=== PATIENT | male | born 1985 | race Caucasian/White ===

== ENCOUNTER 2022-04-29 16:52 | Emergency (ER) | payer OTHER | END 2022-04-29 17:46 | disposition home or self-care (01) | LOC: NAV ERS 16:52 | DX: S43.402A Unspecified sprain of left shoulder joint, initial encounter (principal); I10 Essential (primary) hypertension; E78.5 Hyperlipidemia, unspecified; Z87.891 Personal history of nicotine dependence; X58.XXXA Exposure to other specified factors, initial encounter | CPT/HCPCS: 99283 ==

== ENCOUNTER 2022-05-17 08:04 | Emergency (ER) | payer OTHER ==
[2022-05-17] MEDS ORDERED: predniSONE 20 MG TAB ONE (08:20)
== END 2022-05-17 08:28 | disposition home or self-care (01) ==
LOC: NAV ERS 08:04
DX: L23.7 Allergic contact dermatitis due to plants, except food (principal); I10 Essential (primary) hypertension; E78.5 Hyperlipidemia, unspecified
CPT/HCPCS: 99282; J7512

== ENCOUNTER 2024-01-03 10:44 | Emergency (ER) | payer BC, OTHER ==
[2024-01-03] MEDS ORDERED: AMOXicillin 250 MG CAP ONE (11:17)
[2024-01-03] MEDS ORDERED: Ketorolac Tromethamine 60 MG/2 ML VIAL ONE (11:18)
== END 2024-01-03 11:36 | disposition home or self-care (01) ==
LOC: NAV ERS 10:44
DX: K02.9 Dental caries, unspecified (principal); I10 Essential (primary) hypertension; F17.210 Nicotine dependence, cigarettes, uncomplicated
CPT/HCPCS: 96372; 99282; J1885

== ENCOUNTER 2024-01-31 05:24 | Emergency (ER) | payer BC | END 2024-01-31 07:16 | disposition home or self-care (01) | LOC: NAV ERS 05:24 | DX: S43.401A Unspecified sprain of right shoulder joint, initial encounter (principal); R03.0 Elevated blood-pressure reading, without diagnosis of hypertension; X58.XXXA Exposure to other specified factors, initial encounter; Y99.0 Civilian activity done for income or pay ==

== ENCOUNTER 2024-10-03 07:58 | Emergency (ER) | payer BC ==
[2024-10-03] MEDS ORDERED: Ibuprofen 200 MG TAB ONE (08:23)
[2024-10-03] MEDS ORDERED: Methocarbamol 500 MG TAB ONE (08:25)
== END 2024-10-03 08:51 | disposition home or self-care (01) ==
LOC: NAV ERS 07:58
DX: S16.1XXA Strain of muscle, fascia and tendon at neck level, initial encounter (principal); I10 Essential (primary) hypertension; Z87.891 Personal history of nicotine dependence; X58.XXXA Exposure to other specified factors, initial encounter
CPT/HCPCS: 99283